=== PATIENT | female | born 1950 | race Two or more races ===

== ENCOUNTER 2016-11-03 12:28 | Outpatient (CLI) | payer BC | END 2016-11-03 23:59 | disposition home or self-care (01) | LOC: WOU 12:28 | PROVIDERS: ATTEND Podiatrist Foot & Ankle Surgery | DX: Z47.89 Encounter for other orthopedic aftercare (principal); Z48.02 Encounter for removal of sutures; M20.41 Other hammer toe(s) (acquired), right foot; M20.11 Hallux valgus (acquired), right foot | CPT/HCPCS: A6402; G0463 ==

== ENCOUNTER 2016-11-26 11:14 | Outpatient (CLI) | payer BC | END 2016-11-26 23:59 | disposition home or self-care (01) | LOC: WOU 11:14 | PROVIDERS: ATTEND Podiatrist Foot & Ankle Surgery | DX: Z51.89 Encounter for other specified aftercare (principal); M20.11 Hallux valgus (acquired), right foot; R60.0 Localized edema; M20.41 Other hammer toe(s) (acquired), right foot | CPT/HCPCS: G0463 ==

== ENCOUNTER 2016-12-24 12:14 | Outpatient (CLI) | payer BC | END 2016-12-24 23:59 | disposition home or self-care (01) | LOC: WOU 12:14 | PROVIDERS: ATTEND Podiatrist Foot & Ankle Surgery | DX: Z47.89 Encounter for other orthopedic aftercare (principal); R60.0 Localized edema | CPT/HCPCS: G0463 ==

== ENCOUNTER → 2016-12-24 | Outpatient (CLI) | payer BC | LOC: RAD 11:33 | PROVIDERS: ATTEND Podiatrist Foot & Ankle Surgery | DX: M19.071 Primary osteoarthritis, right ankle and foot (principal); R60.1 Generalized edema | CPT/HCPCS: 73630-TC ==